=== PATIENT | female | born 1955 | race Caucasian/White ===

== ENCOUNTER 2017-12-11 22:01 | Emergency (ER) | payer MEDICARE, BC ==
[2017-12-11] MEDS ORDERED: LOSARTAN POT50 MG PO (22:24)
[2017-12-11] MEDS ORDERED: BRILINTA90 MG PO (22:25)
[2017-12-11] MEDS ORDERED: TRAMADOL HCL50 MG PO (22:25)
[2017-12-11] MEDS ORDERED: AMLODIPINE5 MG PO (22:26)
[2017-12-11] MEDS ORDERED: SEROQUEL100 MG PO (22:26)
[2017-12-11] MEDS ORDERED: ROPINIROLE1 MG PO (22:27)
[2017-12-11] MEDS ORDERED: ALPRAZOLAM1 MG PO (22:28)
[2017-12-11] MEDS ORDERED: ASPIRIN81 MG PO (22:28)
[2017-12-11] MEDS ORDERED: CYMBALTA60 MG PO (22:29)
[2017-12-11] MEDS ORDERED: AUGMENTIN875TAB PO (22:58)
[2017-12-11 23:44] VITALS: BP 150/72
== END 2017-12-11 23:35 | disposition home or self-care (01) ==
LOC: ED 22:01
DX: S61.250A Open bite of right index finger without damage to nail, initial encounter (principal); W55.01XA Bitten by cat, initial encounter; Y93.K9 Activity, other involving animal care; Y92.009 Unspecified place in unspecified non-institutional (private) residence as the place of occurrence of the external cause; R50.9 Fever, unspecified

== ENCOUNTER 2021-08-30 19:59 | Emergency (ER) | payer MEDICARE, BC ==
[~2021-08-30] VITALS: Ht 167.6 cm; Wt 90.0 kg
[~2021-08-30 19:59] MED LIST: ALPRAZOLAM1 MG PO; ASPIRIN81 MG PO; AUGMENTIN875TAB PO; BRILINTA90 MG PO; CYMBALTA60 MG PO; LOSARTAN POT50 MG PO; NORVASC5 M1 PO; ROPINIROLE1 MG PO; SEROQUEL100 MG PO; TRAMADOL HCL50 MG PO
[2021-08-30 20:27] VITALS: BP 140/78
[2021-08-30] MEDS ORDERED: ZOLPIDEM5 M1 PO (20:46)
[2021-08-30 20:47] VITALS: BP 134/74
[2021-08-30] MEDS ORDERED: XANAX1 MG PO (20:56)
[2021-08-30 21:01] VITALS: BP 139/72
[2021-08-30 21:15] VITALS: BP 139/72
== END 2021-08-30 21:15 | disposition home or self-care (01) ==
LOC: ED 19:59
DX: Z76.0 Encounter for issue of repeat prescription (principal); I10 Essential (primary) hypertension; I25.10 Atherosclerotic heart disease of native coronary artery without angina pectoris; F41.9 Anxiety disorder, unspecified; F32.A Depression, unspecified; Z95.5 Presence of coronary angioplasty implant and graft

== ENCOUNTER 2021-11-17 00:55 | Emergency (ER) | payer MEDICARE, BC ==
[~2021-11-17] VITALS: Ht 167.6 cm; Wt 90.9 kg
[~2021-11-17 00:55] MED LIST changes: +XANAX1 MG PO; +ZOLPIDEM5 M1 PO
[2021-11-17 01:05] VITALS: BP 163/88
[2021-11-17] MEDS ORDERED: OMEPRAZOLE20 MG PO (01:13)
[2021-11-17 01:15] VITALS: BP 142/76
[2021-11-17 01:30] VITALS: BP 155/84
== END 2021-11-17 01:27 | disposition home or self-care (01) ==
LOC: ED 00:55
DX: Z76.0 Encounter for issue of repeat prescription (principal); G25.81 Restless legs syndrome; T42.8X6A Underdosing of antiparkinsonism drugs and other central muscle-tone depressants, initial encounter; I10 Essential (primary) hypertension; I25.10 Atherosclerotic heart disease of native coronary artery without angina pectoris; F41.9 Anxiety disorder, unspecified; F32.A Depression, unspecified; Z91.128 Patient's intentional underdosing of medication regimen for other reason; Z95.5 Presence of coronary angioplasty implant and graft

== ENCOUNTER 2022-07-16 18:26 | Emergency (ER) | payer MEDICARE, BC ==
[2022-07-16] VITALS (7 sets, daily range): BP systolic 138–174; BP diastolic 68–83
[~2022-07-16] VITALS: Ht 167.6 cm; Wt 94.0 kg
[~2022-07-16 18:26] MED LIST changes: +OMEPRAZOLE20 MG PO
[2022-07-16] MEDS ORDERED: NAPROXEN500 MG PO (22:17)
== END 2022-07-16 22:40 | disposition home or self-care (01) ==
LOC: ED 18:26
DX: M19.072 Primary osteoarthritis, left ankle and foot (principal); M77.32 Calcaneal spur, left foot; I10 Essential (primary) hypertension; I25.10 Atherosclerotic heart disease of native coronary artery without angina pectoris; F41.9 Anxiety disorder, unspecified; F32.A Depression, unspecified; M25.572 Pain in left ankle and joints of left foot; M25.472 Effusion, left ankle

== ENCOUNTER 2023-10-09 18:42 | Emergency (ER) | payer MEDICARE, BC ==
[~2023-10-09] VITALS: Ht 167.6 cm; Wt 91.0 kg
[~2023-10-09 18:42] MED LIST changes: +NAPROXEN500 MG PO; +ZYRTEC10 MG PO
[2023-10-09 19:08] VITALS: BP 152/104
[2023-10-09 19:15] VITALS: BP 144/78
[2023-10-09] MEDS ORDERED: ANUCORT-HC25 MG RE (19:21)
[2023-10-09 19:28] VITALS: BP 144/78
== END 2023-10-09 19:55 | disposition home or self-care (01) ==
LOC: ED 18:42
DX: K64.8 Other hemorrhoids (principal); K64.4 Residual hemorrhoidal skin tags; I10 Essential (primary) hypertension; I25.10 Atherosclerotic heart disease of native coronary artery without angina pectoris; F41.9 Anxiety disorder, unspecified; F32.A Depression, unspecified; Z95.5 Presence of coronary angioplasty implant and graft; Z86.16 Personal history of COVID-19

== ENCOUNTER 2023-10-26 18:14 | Emergency (ER) | payer MEDICARE, BC ==
[~2023-10-26] VITALS: Ht 167.6 cm; Wt 79.0 kg
[~2023-10-26 18:14] MED LIST changes: +ANUCORT-HC25 MG RE
[2023-10-26 18:21] VITALS: BP 151/77
[2023-10-26 18:30] VITALS: BP 166/81
[2023-10-26] MEDS ORDERED: VIBRAMYCIN100 M2 PO (18:33)
[2023-10-26 18:42] VITALS: BP 166/81
== END 2023-10-26 18:42 | disposition home or self-care (01) ==
LOC: ED 18:14
DX: L03.312 Cellulitis of back [any part except buttock and flank] (principal); I10 Essential (primary) hypertension; I25.10 Atherosclerotic heart disease of native coronary artery without angina pectoris; F41.9 Anxiety disorder, unspecified; F32.A Depression, unspecified; Z95.5 Presence of coronary angioplasty implant and graft